=== PATIENT | female | born 1945 | race Caucasian/White ===

== ENCOUNTER → 2017-11-28 | Outpatient (CLI) | payer MEDICARE ==
[~2017-11-28] MED LIST: ALBIPROI INH; ALBU3IS INH; AMLO5 PO; ATEN50 PO; ATOR20 PO; CEPH500 PO; CETI5 PO; CITA20 PO; LEVFLO500 PO; LISHYD2025 PO; LISI20 PO; LISI5 PO; MONT10T PO; Norco 5-325 Ta1 EACH PO; PRED10 PO; TIOT18 INH
[2017-11-28 17:49] LABS: BASOPHILS ABSOLUTE AUTO 0.03 K/mm3 (0.00-0.23); BASOPHILS PERCENT AUTO 0 % (0-2); EOSINOPHILS ABSOLUTE AUTO 0.27 K/mm3 (0.00-0.68); EOSINOPHILS PERCENT AUTO 3 % (0-6); Hematocrit 32.6 % (33.0-51.0); Hemoglobin 9.5 g/dL (11.5-16.0); IMMATURE GRAN ABSOLUTE AUTO 0.04 K/mm3 (0.00-0.10); IMMATURE GRAN PERCENT AUTO 1 % (0-1); LYMPHOCYTES ABSOLUTE AUTO 1.47 K/mm3 (0.84-5.20); LYMPHOCYTES PERCENT AUTO 18 % (21-46); MONOCYTES ABSOLUTE AUTO 0.68 K/mm3 (0.16-1.47); MONOCYTES PERCENT AUTO 8 % (4-13); Mean Corpuscular HGB 23.1 pg (26.0-34.0); Mean Corpuscular HGB Conc 29.1 g/dL (31.5-36.5); Mean Corpuscular Volume 79 fL (80-100); Mean Platelet Volume 8.8 fL (9.1-12.4); NEUTROPHILS ABSOLUTE AUTO 5.78 K/mm3 (1.96-9.15); NEUTROPHILS PERCENT AUTO 70 % (41-73); Platelet Count 564 K/mm3 (150-400); RDW Coefficient Variation 17.8 % (11.7-14.2); RDW Standard Deviation 51.6 fL (35.1-46.3); Red Blood Cell Count 4.12 M/mm3 (3.80-5.20); White Blood Cell Count 8.27 K/mm3 (4.00-11.30)
[2017-11-28 18:07] LABS: Alanine Aminotransfer (ALT/SGP 27 U/L (12-78); Albumin, Blood 3.1 g/dL (3.4-5.0); Albumin/Globulin Ratio 0.8 (0.8-1.8); Alk Phos 98 U/L (50-136); Anion Gap 7 mmol/L (6-16); Aspartate Aminotrans (AST/SGOT 16 U/L (12-37); Bilirubin, Total 0.7 mg/dL (0.1-1.0); Blood Urea Nitrogen 6 mg/dL (8-24); Bun/Creatinine Ratio 11.6 (12.0-20.0); CO2, Blood 34 mmol/L (21-32); Calcium, Blood 8.8 mg/dL (8.5-10.1); Chloride, Blood 100 mmol/L (98-108); Creatinine, Blood 0.52 mg/dL (0.40-1.00); Globulin, Blood 3.8 g/dL (2.2-4.0); Glomerular Filtration Rate >60 (60-); Glucose, Blood 85 mg/dL (70-99); Potassium, Blood 3.3 mmol/L (3.5-5.5); Sodium, Blood 141 mmol/L (136-145); Total Protein, Blood 6.9 g/dL (6.4-8.2)
== END ==
LOC: LAB SHORT 16:11 → LAB 16:11
PROVIDERS: Hospitalist
DX: Z11.59 Encounter for screening for other viral diseases (principal); R55 Syncope and collapse
CPT/HCPCS: 80053; 85025; 86803

== ENCOUNTER 2018-01-02 21:15 | Inpatient (IN) | payer MEDICARE ==
[~2018-01-02] VITALS: Ht 154.9 cm; Wt 54.0 kg
[~2018-01-02 21:15] MED LIST changes: +AMLO10 PO; -AMLO5 PO
[2018-01-02 21:46] LABS: BASOPHILS ABSOLUTE AUTO 0.04 K/mm3 (0.00-0.23); BASOPHILS PERCENT AUTO 0 % (0-2); EOSINOPHILS ABSOLUTE AUTO 0.04 K/mm3 (0.00-0.68); EOSINOPHILS PERCENT AUTO 0 % (0-6); Hematocrit 31.2 % (33.0-51.0); Hemoglobin 8.9 g/dL (11.5-16.0); IMMATURE GRAN ABSOLUTE AUTO 0.11 K/mm3 (0.00-0.10); IMMATURE GRAN PERCENT AUTO 0 % (0-1); LYMPHOCYTES ABSOLUTE AUTO 1.46 K/mm3 (0.84-5.20); LYMPHOCYTES PERCENT AUTO 6 % (21-46); MONOCYTES ABSOLUTE AUTO 1.51 K/mm3 (0.16-1.47); MONOCYTES PERCENT AUTO 6 % (4-13); Mean Corpuscular HGB 21.9 pg (26.0-34.0); Mean Corpuscular HGB Conc 28.5 g/dL (31.5-36.5); Mean Corpuscular Volume 77 fL (80-100); Mean Platelet Volume 8.4 fL (9.1-12.4); NEUTROPHILS ABSOLUTE AUTO 22.18 K/mm3 (1.96-9.15); NEUTROPHILS PERCENT AUTO 87 % (41-73); Platelet Count 497 K/mm3 (150-400); RDW Coefficient Variation 19.4 % (11.7-14.2); RDW Standard Deviation 53.5 fL (35.1-46.3); Red Blood Cell Count 4.07 M/mm3 (3.80-5.20); White Blood Cell Count 25.34 K/mm3 (4.00-11.30)
[2018-01-02 21:59] LABS: Alanine Aminotransfer (ALT/SGP 25 U/L (12-78); Albumin/Globulin Ratio 0.8 (0.8-1.8); Alk Phos 93 U/L (50-136); Anion Gap 5 mmol/L (6-16); Aspartate Aminotrans (AST/SGOT 18 U/L (12-37); Bilirubin, Total 0.3 mg/dL (0.1-1.0); Blood Urea Nitrogen 6 mg/dL (8-24); Bun/Creatinine Ratio 12.5 (12.0-20.0); CO2, Blood 34 mmol/L (21-32); Calcium, Blood 8.5 mg/dL (8.5-10.1); Chloride, Blood 103 mmol/L (98-108); Creatinine, Blood 0.48 mg/dL (0.40-1.00); Globulin, Blood 3.8 g/dL (2.2-4.0); Glomerular Filtration Rate >60 (60-); Glucose, Blood 113 mg/dL (70-99); Potassium, Blood 3.5 mmol/L (3.5-5.5); Sodium, Blood 142 mmol/L (136-145); Total Protein, Blood 6.8 g/dL (6.4-8.2)
[2018-01-03] MEDS ORDERED: LORA.5 PO (00:05)
[2018-01-03] MEDS ORDERED: VENL150ER PO (00:06)
[2018-01-03] MEDS ORDERED: Micro-K10 MEQ PO (00:07)
[2018-01-03] MEDS ORDERED: PRED20 PO (00:08)
[2018-01-03] MEDS ORDERED: TIZANIDINE HCL2 MG PO (01:43)
[2018-01-03] MEDS ORDERED: IBUP400 PO (02:03)
[2018-01-03] MEDS ORDERED: LORA1 PO (02:03)
[2018-01-03] MEDS ORDERED: CETI5 PO (02:05)
[2018-01-03] MEDS ORDERED: ALBU90OI61 INH (02:06)
[2018-01-03] MEDS ORDERED: COMBIVENT RESPIM4 GM INH (02:06)
[2018-01-03] MEDS ORDERED: TIOT18 INH (02:07)
[2018-01-03 04:32] LABS: BASOPHILS ABSOLUTE AUTO 0.02 K/mm3 (0.00-0.23); BASOPHILS PERCENT AUTO 0 % (0-2); EOSINOPHILS PERCENT AUTO 0 % (0-6); Hematocrit 30.4 % (33.0-51.0); Hemoglobin 8.7 g/dL (11.5-16.0); IMMATURE GRAN ABSOLUTE AUTO 0.25 K/mm3 (0.00-0.10); IMMATURE GRAN PERCENT AUTO 1 % (0-1); LYMPHOCYTES ABSOLUTE AUTO 0.38 K/mm3 (0.84-5.20); LYMPHOCYTES PERCENT AUTO 2 % (21-46); MONOCYTES ABSOLUTE AUTO 0.16 K/mm3 (0.16-1.47); MONOCYTES PERCENT AUTO 1 % (4-13); Mean Corpuscular HGB 21.9 pg (26.0-34.0); Mean Corpuscular HGB Conc 28.6 g/dL (31.5-36.5); Mean Corpuscular Volume 76 fL (80-100); Mean Platelet Volume 8.5 fL (9.1-12.4); NEUTROPHILS ABSOLUTE AUTO 23.74 K/mm3 (1.96-9.15); NEUTROPHILS PERCENT AUTO 97 % (41-73); Platelet Count 462 K/mm3 (150-400); RDW Coefficient Variation 19.2 % (11.7-14.2); RDW Standard Deviation 53.3 fL (35.1-46.3); Red Blood Cell Count 3.98 M/mm3 (3.80-5.20); White Blood Cell Count 24.55 K/mm3 (4.00-11.30)
[2018-01-03 04:50] LABS: Anion Gap 6 mmol/L (6-16); Blood Urea Nitrogen 7 mg/dL (8-24); Bun/Creatinine Ratio 14.7 (12.0-20.0); CO2, Blood 33 mmol/L (21-32); Calcium, Blood 8.6 mg/dL (8.5-10.1); Chloride, Blood 101 mmol/L (98-108); Creatinine, Blood 0.48 mg/dL (0.40-1.00); Glomerular Filtration Rate >60 (60-); Glucose, Blood 127 mg/dL (70-99); Potassium, Blood 3.4 mmol/L (3.5-5.5); Sodium, Blood 140 mmol/L (136-145)
[2018-01-04 09:26] LABS: PCO2 Arterial 58.9 mmHg (35-45); PO2 Arterial 76.5 mmHg (80-100); pH Blood Arterial 7.39 (7.35-7.45)
[2018-01-04 09:47] LABS: BASOPHILS ABSOLUTE AUTO 0.02 K/mm3 (0.00-0.23); BASOPHILS PERCENT AUTO 0 % (0-2); EOSINOPHILS PERCENT AUTO 0 % (0-6); Hematocrit 31.2 % (33.0-51.0); Hemoglobin 8.9 g/dL (11.5-16.0); IMMATURE GRAN ABSOLUTE AUTO 0.32 K/mm3 (0.00-0.10); IMMATURE GRAN PERCENT AUTO 1 % (0-1); LYMPHOCYTES ABSOLUTE AUTO 0.52 K/mm3 (0.84-5.20); LYMPHOCYTES PERCENT AUTO 2 % (21-46); MONOCYTES ABSOLUTE AUTO 0.58 K/mm3 (0.16-1.47); MONOCYTES PERCENT AUTO 2 % (4-13); Mean Corpuscular HGB 22.1 pg (26.0-34.0); Mean Corpuscular HGB Conc 28.5 g/dL (31.5-36.5); Mean Corpuscular Volume 77 fL (80-100); Mean Platelet Volume 8.9 fL (9.1-12.4); NEUTROPHILS ABSOLUTE AUTO 24.38 K/mm3 (1.96-9.15); NEUTROPHILS PERCENT AUTO 95 % (41-73); Platelet Count 510 K/mm3 (150-400); RDW Coefficient Variation 19.6 % (11.7-14.2); RDW Standard Deviation 55.2 fL (35.1-46.3); Red Blood Cell Count 4.03 M/mm3 (3.80-5.20); White Blood Cell Count 25.82 K/mm3 (4.00-11.30)
[2018-01-04 10:03] LABS: Anion Gap 6 mmol/L (6-16); Blood Urea Nitrogen 16 mg/dL (8-24); Bun/Creatinine Ratio 26.6 (12.0-20.0); CO2, Blood 36 mmol/L (21-32); Calcium, Blood 9.2 mg/dL (8.5-10.1); Chloride, Blood 97 mmol/L (98-108); Glomerular Filtration Rate >60 (60-); Glucose, Blood 159 mg/dL (70-99); Potassium, Blood 3.7 mmol/L (3.5-5.5); Sodium, Blood 139 mmol/L (136-145)
[2018-01-04 14:00] LABS: Adenovirus Not Detected (NOT DETECT); Coronavirus 229E Not Detected (NOT DETECT); Coronavirus HKU1 Not Detected (NOT DETECT)
[2018-01-04 14:01] LABS: Bordetella pertussis Not Detected (NOT DETECT); Chlamydophila pneumoniae Not Detected (NOT DETECT); Coronavirus NL63 Not Detected (NOT DETECT); Coronavirus OC43 Not Detected (NOT DETECT); Human Metapneumovirus Not Detected (NOT DETECT); Human Rhinovirus/Enterovirus Not Detected (NOT DETECT); Influenza A/2009-H1 Not Detected (NOT DETECT); Influenza A/H1 Not Detected (NOT DETECT); Influenza A/H3 Not Detected (NOT DETECT); Influenza B Not Detected (NOT DETECT); Mycoplasma pneumoniae Not Detected (NOT DETECT); Parainfluenza Virus 1 Not Detected (NOT DETECT); Parainfluenza Virus 2 Not Detected (NOT DETECT); Parainfluenza Virus 3 Not Detected (NOT DETECT); Parainfluenza Virus 4 Not Detected (NOT DETECT); Respiratory Syncytial Virus Not Detected (NOT DETECT)
[2018-01-04 15:13] LABS: Influenza A Not Detected (NOT DETECT)
[2018-01-05 05:10] LABS: BASOPHILS ABSOLUTE AUTO 0.04 K/mm3 (0.00-0.23); BASOPHILS PERCENT AUTO 0 % (0-2); EOSINOPHILS PERCENT AUTO 0 % (0-6); Hematocrit 30.2 % (33.0-51.0); Hemoglobin 8.7 g/dL (11.5-16.0); IMMATURE GRAN ABSOLUTE AUTO 0.55 K/mm3 (0.00-0.10); IMMATURE GRAN PERCENT AUTO 2 % (0-1); LYMPHOCYTES ABSOLUTE AUTO 0.59 K/mm3 (0.84-5.20); LYMPHOCYTES PERCENT AUTO 3 % (21-46); MONOCYTES ABSOLUTE AUTO 0.51 K/mm3 (0.16-1.47); MONOCYTES PERCENT AUTO 2 % (4-13); Mean Corpuscular HGB 21.9 pg (26.0-34.0); Mean Corpuscular HGB Conc 28.8 g/dL (31.5-36.5); Mean Corpuscular Volume 76 fL (80-100); Mean Platelet Volume 8.9 fL (9.1-12.4); NEUTROPHILS ABSOLUTE AUTO 22.22 K/mm3 (1.96-9.15); NEUTROPHILS PERCENT AUTO 93 % (41-73); NRBC ABSOLUTE 0.05 K/mm3 (0.00-0.02); NRBC Auto 0.2 /100 WBC (0.0-0.2); Platelet Count 509 K/mm3 (150-400); RDW Coefficient Variation 19.9 % (11.7-14.2); RDW Standard Deviation 54.3 fL (35.1-46.3); Red Blood Cell Count 3.97 M/mm3 (3.80-5.20); White Blood Cell Count 23.91 K/mm3 (4.00-11.30)
[2018-01-05 05:33] LABS: Anion Gap 5 mmol/L (6-16); Blood Urea Nitrogen 19 mg/dL (8-24); Bun/Creatinine Ratio 34.4 (12.0-20.0); CO2, Blood 33 mmol/L (21-32); Calcium, Blood 8.8 mg/dL (8.5-10.1); Chloride, Blood 101 mmol/L (98-108); Creatinine, Blood 0.55 mg/dL (0.40-1.00); Glomerular Filtration Rate >60 (60-); Glucose, Blood 116 mg/dL (70-99); Potassium, Blood 4.1 mmol/L (3.5-5.5); Sodium, Blood 139 mmol/L (136-145)
[2018-01-06] MEDS ORDERED: FERSU220EL PO (10:35)
[2018-01-06] MEDS ORDERED: GUAI600T33 PO (10:36)
[2018-01-06] MEDS ORDERED: FURO40 PO (10:36)
[2018-01-06] MEDS ORDERED: PANT40 PO ×2 (15:02→15:32)
== END 2018-01-06 19:30 | disposition home or self-care (01) | DRG 871 ==
LOC: ER 21:15 → MEDS 23:28
PROVIDERS: Emergency Medicine; Hospitalist; Internal Medicine; Internal Medicine Gastroenterology
PROC: 0W3P8ZZ Control Bleeding in Gastrointestinal Tract, Via Natural or Artificial Opening Endoscopic (ICD-10-PCS; 2018-01-06)
PROC: 0DB98ZX Excision of Duodenum, Via Natural or Artificial Opening Endoscopic, Diagnostic (ICD-10-PCS; principal; 2018-01-06 10:00)
PROC: 0DB78ZX Excision of Stomach, Pylorus, Via Natural or Artificial Opening Endoscopic, Diagnostic (ICD-10-PCS; 2018-01-06 10:00)
PROC: 0DB68ZX Excision of Stomach, Via Natural or Artificial Opening Endoscopic, Diagnostic (ICD-10-PCS; 2018-01-06 10:00)
PROC: 0DBK8ZX Excision of Ascending Colon, Via Natural or Artificial Opening Endoscopic, Diagnostic (ICD-10-PCS; 2018-01-06 10:00)
PROC: 0DBP8ZX Excision of Rectum, Via Natural or Artificial Opening Endoscopic, Diagnostic (ICD-10-PCS; 2018-01-06 10:00)
DX: A41.9 Sepsis, unspecified organism (principal); J96.21 Acute and chronic respiratory failure with hypoxia; J96.22 Acute and chronic respiratory failure with hypercapnia; J44.1 Chronic obstructive pulmonary disease with (acute) exacerbation; D50.9 Iron deficiency anemia, unspecified; I10 Essential (primary) hypertension; E78.5 Hyperlipidemia, unspecified; F17.200 Nicotine dependence, unspecified, uncomplicated; I99.8 Other disorder of circulatory system; M19.90 Unspecified osteoarthritis, unspecified site; K25.9 Gastric ulcer, unspecified as acute or chronic, without hemorrhage or perforation; K57.30 Diverticulosis of large intestine without perforation or abscess without bleeding; K64.8 Other hemorrhoids; K20.8 Other esophagitis; K63.5 Polyp of colon; K62.1 Rectal polyp; Z88.1 Allergy status to other antibiotic agents; Z88.3 Allergy status to other anti-infective agents; Z88.5 Allergy status to narcotic agent; Z88.0 Allergy status to penicillin; Z99.81 Dependence on supplemental oxygen; Z79.899 Other long term (current) drug therapy
CPT/HCPCS: 36415; 36600; 71046; 80048; 80053; 82803; 83605; 83880; 85025; 87040; 87486; 87581; 87633; 87798; 88305; 88342; 93005; 93010; 94010; 94640; 94664; 94667; 94760; 96365; 96375; 98960; 99285; 99407; J1100; J1940; J1956; J2250; J2405; J2916; J2920; J2930; J7030; J7120

== ENCOUNTER 2018-01-07 16:11 | Observation (INO) | payer MEDICARE ==
[~2018-01-07] VITALS: Ht 154.9 cm; Wt 52.7 kg
[~2018-01-07 16:11] MED LIST changes: +ALBU90OI61 INH; +COMBIVENT RESPIM4 GM INH; +FERSU220EL PO; +FURO40 PO; +GUAI600T33 PO; +IBUP400 PO; +LORA.5 PO; +LORA1 PO; +Micro-K10 MEQ PO; +PANT40 PO; +PRED20 PO; +TIZANIDINE HCL2 MG PO; +VENL150ER PO
[2018-01-07 16:54] LABS: BASOPHILS ABSOLUTE AUTO 0.04 K/mm3 (0.00-0.23); BASOPHILS PERCENT AUTO 0 % (0-2); EOSINOPHILS PERCENT AUTO 1 % (0-6); Hematocrit 32.6 % (33.0-51.0); Hemoglobin 9.2 g/dL (11.5-16.0); IMMATURE GRAN ABSOLUTE AUTO 0.54 K/mm3 (0.00-0.10); IMMATURE GRAN PERCENT AUTO 3 % (0-1); LYMPHOCYTES ABSOLUTE AUTO 2.87 K/mm3 (0.84-5.20); LYMPHOCYTES PERCENT AUTO 17 % (21-46); MONOCYTES ABSOLUTE AUTO 1.46 K/mm3 (0.16-1.47); MONOCYTES PERCENT AUTO 9 % (4-13); Mean Corpuscular HGB 22.5 pg (26.0-34.0); Mean Corpuscular HGB Conc 28.2 g/dL (31.5-36.5); Mean Platelet Volume 8.6 fL (9.1-12.4); NEUTROPHILS ABSOLUTE AUTO 12.09 K/mm3 (1.96-9.15); NEUTROPHILS PERCENT AUTO 71 % (41-73); NRBC ABSOLUTE 0.08 K/mm3 (0.00-0.02); NRBC Auto 0.5 /100 WBC (0.0-0.2); Platelet Count 488 K/mm3 (150-400); RDW Coefficient Variation 20.7 % (11.7-14.2); RDW Standard Deviation 56.3 fL (35.1-46.3); Red Blood Cell Count 4.09 M/mm3 (3.80-5.20)
[2018-01-07 16:55] LABS: Calcium, Ionized (POC) 1.04 mmol/L (1.10-1.46); Chloride (POC) 95 mmol/L (98-108); Creatinine (POC) 0.9 mg/dL (0.6-1.0); Glucose (ISTAT POC) 87 mg/dL (70-99); Hemoglobin (POC) 10.5 g/dL (12.0-16.0); Potassium (POC) 3.4 mmol/L (3.5-5.5); Sodium (POC) 139 mmol/L (135-148); Total CO2 (POC) 35 mmol/L (21-32)
[2018-01-07 17:07] LABS: Mean Corpuscular Volume 80 fL (80-100)
[2018-01-07 17:20] LABS: Alanine Aminotransfer (ALT/SGP 23 U/L (12-78); Albumin, Blood 3.2 g/dL (3.4-5.0); Alk Phos 75 U/L (50-136); Anion Gap 4 mmol/L (6-16); Aspartate Aminotrans (AST/SGOT 14 U/L (12-37); Bilirubin, Total 0.2 mg/dL (0.1-1.0); Blood Urea Nitrogen 19 mg/dL (8-24); Bun/Creatinine Ratio 28.4 (12.0-20.0); CO2, Blood 38 mmol/L (21-32); Calcium, Blood 8.1 mg/dL (8.5-10.1); Chloride, Blood 100 mmol/L (98-108); Creatinine, Blood 0.67 mg/dL (0.40-1.00); Globulin, Blood 3.2 g/dL (2.2-4.0); Glomerular Filtration Rate >60 (60-); Glucose, Blood 88 mg/dL (70-99); Potassium, Blood 3.4 mmol/L (3.5-5.5); Sodium, Blood 142 mmol/L (136-145); Total Protein, Blood 6.4 g/dL (6.4-8.2)
[2018-01-08 04:51] LABS: BASOPHILS ABSOLUTE AUTO 0.02 K/mm3 (0.00-0.23); BASOPHILS PERCENT AUTO 0 % (0-2); EOSINOPHILS PERCENT AUTO 0 % (0-6); Hematocrit 28.4 % (33.0-51.0); Hemoglobin 8.1 g/dL (11.5-16.0); IMMATURE GRAN ABSOLUTE AUTO 0.54 K/mm3 (0.00-0.10); IMMATURE GRAN PERCENT AUTO 4 % (0-1); LYMPHOCYTES ABSOLUTE AUTO 0.79 K/mm3 (0.84-5.20); LYMPHOCYTES PERCENT AUTO 6 % (21-46); MONOCYTES ABSOLUTE AUTO 0.14 K/mm3 (0.16-1.47); MONOCYTES PERCENT AUTO 1 % (4-13); Mean Corpuscular HGB 22.2 pg (26.0-34.0); Mean Corpuscular HGB Conc 28.5 g/dL (31.5-36.5); Mean Corpuscular Volume 78 fL (80-100); Mean Platelet Volume 9.2 fL (9.1-12.4); NEUTROPHILS ABSOLUTE AUTO 11.13 K/mm3 (1.96-9.15); NEUTROPHILS PERCENT AUTO 88 % (41-73); NRBC ABSOLUTE 0.05 K/mm3 (0.00-0.02); NRBC Auto 0.4 /100 WBC (0.0-0.2); Platelet Count 441 K/mm3 (150-400); RDW Coefficient Variation 20.6 % (11.7-14.2); RDW Standard Deviation 55.3 fL (35.1-46.3); Red Blood Cell Count 3.65 M/mm3 (3.80-5.20); White Blood Cell Count 12.62 K/mm3 (4.00-11.30)
== END 2018-01-08 16:52 | disposition home or self-care (01) ==
LOC: ER 16:11 → MEDS 16:12
PROVIDERS: Emergency Medicine; Hospitalist
DX: K92.2 Gastrointestinal hemorrhage, unspecified (principal); J44.1 Chronic obstructive pulmonary disease with (acute) exacerbation; I10 Essential (primary) hypertension; D72.829 Elevated white blood cell count, unspecified; J45.909 Unspecified asthma, uncomplicated; F17.210 Nicotine dependence, cigarettes, uncomplicated; E78.5 Hyperlipidemia, unspecified; M19.90 Unspecified osteoarthritis, unspecified site; F41.9 Anxiety disorder, unspecified; D47.3 Essential (hemorrhagic) thrombocythemia; D50.9 Iron deficiency anemia, unspecified; Z99.81 Dependence on supplemental oxygen; Z88.0 Allergy status to penicillin; Z88.1 Allergy status to other antibiotic agents; Z88.8 Allergy status to other drugs, medicaments and biological substances; Z79.899 Other long term (current) drug therapy
CPT/HCPCS: 36415; 80047; 80053; 85014; 85025; 86850; 86900; 86901; 93005; 93010; 94640; 94760; 99285; G0378

== ENCOUNTER 2018-08-31 20:11 | Inpatient (IN) | payer MEDICARE ==
[~2018-08-31] VITALS: Ht 167.6 cm; Wt 74.8 kg
[~2018-08-31 20:11] MED LIST changes: +Advair Hfa 230-12 GM INH; -FERSU220EL PO; +Feosol45 MG
[2018-08-31 20:42] LABS: BASOPHILS ABSOLUTE AUTO 0.03 K/mm3 (0.00-0.23); BASOPHILS PERCENT AUTO 0 % (0-2); EOSINOPHILS ABSOLUTE AUTO 0.02 K/mm3 (0.00-0.68); EOSINOPHILS PERCENT AUTO 0 % (0-6); Hematocrit 44.3 % (33.0-51.0); Hemoglobin 13.7 g/dL (11.5-16.0); IMMATURE GRAN ABSOLUTE AUTO 0.09 K/mm3 (0.00-0.10); IMMATURE GRAN PERCENT AUTO 1 % (0-1); LYMPHOCYTES ABSOLUTE AUTO 1.32 K/mm3 (0.84-5.20); LYMPHOCYTES PERCENT AUTO 12 % (21-46); MONOCYTES ABSOLUTE AUTO 0.62 K/mm3 (0.16-1.47); MONOCYTES PERCENT AUTO 6 % (4-13); Mean Corpuscular HGB 30.9 pg (26.0-34.0); Mean Corpuscular HGB Conc 30.9 g/dL (31.5-36.5); Mean Corpuscular Volume 100 fL (80-100); Mean Platelet Volume 8.6 fL (9.1-12.4); NEUTROPHILS ABSOLUTE AUTO 8.82 K/mm3 (1.96-9.15); NEUTROPHILS PERCENT AUTO 81 % (41-73); Platelet Count 419 K/mm3 (150-400); RDW Coefficient Variation 12.9 % (11.7-14.2); Red Blood Cell Count 4.43 M/mm3 (3.80-5.20)
[2018-08-31 21:09] LABS: Troponin I <0.015 ng/mL (0.000-0.040)
[2018-08-31 21:11] LABS: Alanine Aminotransfer (ALT/SGP 26 U/L (12-78); Albumin, Blood 3.8 g/dL (3.4-5.0); Alk Phos 66 U/L (50-136); Anion Gap 7 mmol/L (6-16); Aspartate Aminotrans (AST/SGOT 16 U/L (12-37); Bilirubin, Total <0.1 mg/dL (0.1-1.0); Blood Urea Nitrogen 19 mg/dL (8-24); Bun/Creatinine Ratio 20.1 (12.0-20.0); CO2, Blood 31 mmol/L (21-32); Calcium, Blood 9.4 mg/dL (8.5-10.1); Chloride, Blood 102 mmol/L (98-108); Creatinine, Blood 0.94 mg/dL (0.40-1.00); Glomerular Filtration Rate >60 (60-); Glucose, Blood 107 mg/dL (70-99); Potassium, Blood 4.3 mmol/L (3.5-5.5); Sodium, Blood 140 mmol/L (136-145); Total Protein, Blood 7.8 g/dL (6.4-8.2)
[2018-08-31 22:58] LABS: International Normalized Ratio 0.91; Prothrombin Time Results 9.4 Sec (9.7-11.5)
[2018-08-31] MEDS ORDERED: PRED10 PO (23:44)
[2018-09-01 04:08] LABS: Adenovirus Not Detected (NOT DETECT); Bordetella pertussis Not Detected (NOT DETECT); Chlamydophila pneumoniae Not Detected (NOT DETECT); Coronavirus 229E Not Detected (NOT DETECT); Coronavirus HKU1 Not Detected (NOT DETECT); Coronavirus NL63 Not Detected (NOT DETECT); Coronavirus OC43 Not Detected (NOT DETECT); Human Metapneumovirus Not Detected (NOT DETECT); Human Rhinovirus/Enterovirus Not Detected (NOT DETECT); Influenza A/2009-H1 Not Detected (NOT DETECT); Influenza A/H1 Not Detected (NOT DETECT); Influenza A/H3 Not Detected (NOT DETECT); Influenza B Not Detected (NOT DETECT); Mycoplasma pneumoniae Not Detected (NOT DETECT); Parainfluenza Virus 1 Not Detected (NOT DETECT); Parainfluenza Virus 2 Not Detected (NOT DETECT); Parainfluenza Virus 3 Not Detected (NOT DETECT); Parainfluenza Virus 4 Not Detected (NOT DETECT); Respiratory Syncytial Virus Not Detected (NOT DETECT)
[2018-09-01 05:25] LABS: Influenza A Not Detected (NOT DETECT)
[2018-09-01 05:48] LABS: Hemoglobin 12.3 g/dL (11.5-16.0); Mean Corpuscular HGB 30.7 pg (26.0-34.0); Mean Corpuscular HGB Conc 30.8 g/dL (31.5-36.5); Mean Corpuscular Volume 100 fL (80-100); Mean Platelet Volume 8.9 fL (9.1-12.4); Platelet Count 388 K/mm3 (150-400); RDW Coefficient Variation 12.9 % (11.7-14.2); RDW Standard Deviation 47.8 fL (35.1-46.3); Red Blood Cell Count 4.01 M/mm3 (3.80-5.20); White Blood Cell Count 10.66 K/mm3 (4.00-11.30)
[2018-09-01 06:16] LABS: Anion Gap 8 mmol/L (6-16); Blood Urea Nitrogen 21 mg/dL (8-24); Bun/Creatinine Ratio 27.8 (12.0-20.0); CO2, Blood 28 mmol/L (21-32); Calcium, Blood 8.7 mg/dL (8.5-10.1); Chloride, Blood 104 mmol/L (98-108); Creatinine, Blood 0.76 mg/dL (0.40-1.00); Glomerular Filtration Rate >60 (60-); Glucose, Blood 156 mg/dL (70-99); Potassium, Blood 4.3 mmol/L (3.5-5.5); Sodium, Blood 140 mmol/L (136-145)
--- NOTE | 2018-09-01 07:46 | NUR ---
SHIFT SUMMARY PT A&OX4; PAIN IN L SHOULDER. MANGED PER EMAR. PT ADMITTED FROM ER THIS SHIFT. INDEPENDENT IN ROOM. OFF UNIT X1 EVENT. NPO POST MIDNIGHT. NAUSEA MANAGED PER EMAR. RA; DENIES SOB AND CP. CALL LIGHT IN REACH; PT DEMONSTRATES USE. NOTIFIED DR. LEMUS THIS AM PT REPORTS ASPIRIN USE FOR PAIN MANGEMENT FOR THE LAST FEW MONTHS. REPORT GIVEN TO DAY SHIFT RN.
--- NOTE | 2018-09-01 07:54 | NUR ---
SHIFT SUMMARY PT A&O X4 T/O SHIFT. PT ADMITTED FROM ER APPROX. 0200 09/01/18. O2 VIA NC 2.5L VIA NC. PT ABLE TO CONVERSE WITHOUT INCREASED WOB. INCREASED O2 NEEDS WITH ACTIVITY. BSC WITH SBA. CALL LIGHT IN REACH; PT DEMONSTRATES USE. PT DENIED PAIN, CP AND NAUSEA T/O SHIFT. REPORT GIVEN TO DAY SHIFT RN.
--- NOTE | 2018-09-01 18:45 | NUR ---
SHIFT SUMMARY PT AXO X4, PLEASANT AND COOPERATIVE WITH CARE. PT BECAME SOB AND WAS COUGHING AT 1730, REQUESTED BREATHING TREATMENT, SEE MAR. PT COMFORTABLE AT THIS TIME THOUGH WAS CLEARLY ANXIOUS WHEN SOB. PT COMPLAINED OF MALHOTRA THAT HAS BEEN PERSISTING FOR OVER A YEAR. PT MEDICATED FOR PAIN PER EMAR. PT CONTINES TO HAVE EXERTIONAL DYSPNEA. ON 2.5L AT THIS TIME
--- NOTE | 2018-09-02 09:40 | NUR ---
DR ADAMS RECENTLY HERE. REPORTED TO WEAN O2.
--- NOTE | 2018-09-02 16:15 | NUR ---
SHIFT SUMMARY PT EATING AND DRINKING. PT O2 WEANED DOWN TO 2.5LNC. PT BEEN ASSISTED WITH ADL'S PRN. PT VOIDING USING BSC. PT FAMILY IN TO SEE PT. PT USING CALL LIGHT APPR. PT VOIDING. PT GIVEN PRUNE JUICE THIS AFTERNOON UPON REQ.
--- NOTE | 2018-09-03 01:35 | NUR ---
TYLERERA CALL RECIEVED FROM DURGA BAUER AT APPROX 0030 NOTIFYING ME TO GO INTO PT ROOM. PT ON FLOOR SITTING IN AN UPRIGHT POSITION. REPORTS FALLING WHEN GETTING OUT OF BED TO REACH FOR CHAPSTICK THAT HAD FALLEN ON GROUND. STATES SHE GOT TANGLED IN HER 02 TUBING, FELL TO HER KNEES THEN HIT HER HEAD ON THE FLOOR. PT HAS A SMALL BUMP ON FOREHEAD AND REDNESS ON KNEES. DENIES DIZZINESS. A&O X4. PERRY. REPORTS A MILD H/A. GIVEN TYLENOL PER EMAR. DR MONTALVO NOTIFIED OF FALL AT APPROX 0115. WAS TOLD THAT PT REPORTS FALLING AND HITTING HEAD WHILE GETTING TO [facility] [place] [place]. INFORMED THAT PT IS A&O X4, NEURO CHECK WNL. NO DIZZINESS. SML BUMP ON HEAD. NOTIFIED THAT PT TAKES LOVENOX AT 0900 DAILY; ASKED IF HE WANTS TO ORDER IMAGING. RECOMMENDS TO CONTINUE TO MONITOR. NO NEW ORDERS.
--- NOTE | 2018-09-03 07:05 | NUR ---
REPORT FROM SHEAR SETTER. ASSUMED PT CARE.
--- NOTE | 2018-09-03 09:03 | NUR ---
PT MEDICATED PER EMAR. COFFEE PROVIDED PER REQUEST. PT DENIES PAIN.
--- NOTE | 2018-09-03 11:40 | NUR ---
PT RESTING IN POSITION OF COMFORT. APPEARS TO BE SLEEPING.
--- NOTE | 2018-09-03 12:08 | NUR ---
PT REQUESTING SOMETHING FOR PAIN.
--- NOTE | 2018-09-03 12:12 | NUR ---
Alyssia was alert, warm and conversant. No physical pain or stress reported or detected. I explored Alyssia's roman catholic beliefs, created an opportunity for positive life review and offered attentive listening, inspirational direction and words of encouragement and affirmation. Alyssia adheres to a Scientologist perspective with conventional modes of practice and understanding. She has lived a rich, interesting and benevolent life. I provided audible prayer for comfort, restored health and favor. She expressed appreciation and reciprocated with a verbal blessing.
--- NOTE | 2018-09-03 12:25 | NUR ---
report to fer harkins for lunch.
--- NOTE | 2018-09-03 13:10 | NUR ---
resumed pt care.
--- NOTE | 2018-09-03 17:35 | NUR ---
VERBAL ORDERS FROM DR OLIVAS FOR PT TO GET AN OVERNIGHT SLEEP STUDY FOLLOWED BY ABG IN AM.
[2018-09-04 04:38] LABS: PCO2 Arterial 68.6 mmHg (35-45); PO2 Arterial 100 mmHg (80-100); pH Blood Arterial 7.35 (7.35-7.45)
--- NOTE | 2018-09-04 05:14 | NUR ---
PT HAD NO ACUTE CHANGES T/O NIGHT. SLEEP STUDY COMPLETED, SATS >90% ON 3L NC WHILE SLEEPING. SATS NOTED TO DROP TO 82% W/ACTIVITY. PT U POOB W/SBA, DOES HAVE SOB W/EXERTION. PT USING CALL LIGHT FOR ASSISTANCE, WILL CONT TO MONITOR UNTIL REP GIVEN TO ONCOMING RN.
[2018-09-04] MEDS ORDERED: BENZ100A PO (12:02)
[2018-09-04] MEDS ORDERED: LEVFLO500 PO (12:04)
[2018-09-04] MEDS ORDERED: DELTASONE20 MG PO (12:05)
[2018-09-04] MEDS ORDERED: SACC250C PO (12:06)
[2018-09-04] MEDS ORDERED: Bactrim Ds Tab1 EACH PO (12:06)
--- NOTE | 2018-09-04 18:34 | NUR ---
DISCHARGED PT DC'D. REVIEWED DC PAPERWORK; PT VERBALIZED UNDERSTANDING. DC'D IV, CATHETER INTACT. PT LEFT UNIT IN WC ACCOMPANIED BY FAMILY W/POSSESSIONS AND DC INSTRUCTIONS IN HAND.
[2018-10-22] MEDS ORDERED: Zofran8 MG PO (00:16)
[2018-10-22] MEDS ORDERED: HYDR1TAB94 PO (00:16)
== END 2018-09-04 18:25 | disposition home or self-care (01) | DRG 871 ==
LOC: ER 20:11 → SURS 23:20
PROVIDERS: Emergency Medicine; Hospitalist; Nurse Practitioner Acute Care; ADMIT Internal Medicine
DX: A41.9 Sepsis, unspecified organism (principal); J18.9 Pneumonia, unspecified organism; J96.22 Acute and chronic respiratory failure with hypercapnia; J96.21 Acute and chronic respiratory failure with hypoxia; J44.1 Chronic obstructive pulmonary disease with (acute) exacerbation; J44.0 Chronic obstructive pulmonary disease with (acute) lower respiratory infection; R65.20 Severe sepsis without septic shock; I10 Essential (primary) hypertension; F41.9 Anxiety disorder, unspecified; F32.9 Major depressive disorder, single episode, unspecified; E78.5 Hyperlipidemia, unspecified; Z88.1 Allergy status to other antibiotic agents; Z88.8 Allergy status to other drugs, medicaments and biological substances; Z86.14 Personal history of Methicillin resistant Staphylococcus aureus infection; Z79.51 Long term (current) use of inhaled steroids; Z79.52 Long term (current) use of systemic steroids; Z79.899 Other long term (current) drug therapy; Z99.81 Dependence on supplemental oxygen; Z87.891 Personal history of nicotine dependence
CPT/HCPCS: 36415; 36600; 71046; 80048; 80053; 82803; 83605; 83690; 83880; 84484; 85025; 85027; 85610; 87040; 87449; 87486; 87581; 87633; 87798; 93005; 93010; 94640; 94760; 94762; 96361; 96365; 96367; 96375; 99285-25; J0696; J1650; J1956; J2930; J7030; J7120

== ENCOUNTER 2018-09-07 20:26 | Emergency (ER) | payer MEDICARE ==
[~2018-09-07] VITALS: Ht 157.5 cm; Wt 72.6 kg
[~2018-09-07 20:26] MED LIST changes: +BENZ100A PO; +Bactrim Ds Tab1 EACH PO; +DELTASONE20 MG PO; +SACC250C PO
[2018-09-07 21:58] LABS: BASOPHILS ABSOLUTE AUTO 0.07 K/mm3 (0.00-0.23); BASOPHILS PERCENT AUTO 0 % (0-2); EOSINOPHILS PERCENT AUTO 0 % (0-6); Hematocrit 44.4 % (33.0-51.0); Hemoglobin 13.5 g/dL (11.5-16.0); IMMATURE GRAN ABSOLUTE AUTO 0.35 K/mm3 (0.00-0.10); IMMATURE GRAN PERCENT AUTO 2 % (0-1); LYMPHOCYTES ABSOLUTE AUTO 0.77 K/mm3 (0.84-5.20); LYMPHOCYTES PERCENT AUTO 5 % (21-46); MONOCYTES ABSOLUTE AUTO 0.68 K/mm3 (0.16-1.47); MONOCYTES PERCENT AUTO 4 % (4-13); Mean Corpuscular HGB 30.6 pg (26.0-34.0); Mean Corpuscular HGB Conc 30.4 g/dL (31.5-36.5); Mean Corpuscular Volume 101 fL (80-100); Mean Platelet Volume 8.9 fL (9.1-12.4); NEUTROPHILS ABSOLUTE AUTO 14.99 K/mm3 (1.96-9.15); NEUTROPHILS PERCENT AUTO 89 % (41-73); Platelet Count 409 K/mm3 (150-400); RDW Coefficient Variation 13.2 % (11.7-14.2); RDW Standard Deviation 49.7 fL (35.1-46.3); Red Blood Cell Count 4.41 M/mm3 (3.80-5.20); White Blood Cell Count 16.86 K/mm3 (4.00-11.30)
[2018-09-07 22:18] LABS: Albumin, Blood 3.8 g/dL (3.4-5.0); Bilirubin, Total 0.1 mg/dL (0.1-1.0); Bun/Creatinine Ratio 20.5 (12.0-20.0); Creatinine, Blood 1.17 mg/dL (0.40-1.00); Globulin, Blood 3.8 g/dL (2.2-4.0); Potassium, Blood 5.4 mmol/L (3.5-5.5); Total Protein, Blood 7.6 g/dL (6.4-8.2)
[2018-09-08] MEDS ORDERED: HYOS.125 SL (00:27)
[2018-10-22] MEDS ORDERED: HYDR1TAB94 PO (00:16)
[2018-10-22] MEDS ORDERED: Zofran8 MG PO (00:16)
== END 2018-09-08 01:35 | disposition home or self-care (01) ==
LOC: ER 20:26
PROVIDERS: Physician Assistant
DX: K52.9 Noninfective gastroenteritis and colitis, unspecified (principal); E78.5 Hyperlipidemia, unspecified; I10 Essential (primary) hypertension; J45.909 Unspecified asthma, uncomplicated; M19.90 Unspecified osteoarthritis, unspecified site; Z88.5 Allergy status to narcotic agent; Z88.1 Allergy status to other antibiotic agents; Z88.0 Allergy status to penicillin; Z79.899 Other long term (current) drug therapy; Z87.891 Personal history of nicotine dependence
CPT/HCPCS: 36415; 74176; 80053; 83690; 84484; 85025; 87493; 93005; 93010; 94640; 96374; 96375; 96376; 99284-25; J2405; J3010; J7030

== ENCOUNTER 2018-10-11 08:28 | Emergency (ER) | payer MEDICARE ==
[~2018-10-11] VITALS: Ht 157.5 cm; Wt 71.7 kg
[~2018-10-11 08:28] MED LIST changes: +HYOS.125 SL
[2018-10-11 08:44] LABS: BASOPHILS ABSOLUTE AUTO 0.08 K/mm3 (0.00-0.23); BASOPHILS PERCENT AUTO 1 % (0-2); EOSINOPHILS ABSOLUTE AUTO 0.17 K/mm3 (0.00-0.68); EOSINOPHILS PERCENT AUTO 1 % (0-6); Hematocrit 41.2 % (33.0-51.0); Hemoglobin 12.2 g/dL (11.5-16.0); IMMATURE GRAN ABSOLUTE AUTO 0.23 K/mm3 (0.00-0.10); IMMATURE GRAN PERCENT AUTO 1 % (0-1); LYMPHOCYTES PERCENT AUTO 28 % (21-46); MONOCYTES ABSOLUTE AUTO 1.59 K/mm3 (0.16-1.47); MONOCYTES PERCENT AUTO 9 % (4-13); Mean Corpuscular HGB 30.4 pg (26.0-34.0); Mean Corpuscular HGB Conc 29.6 g/dL (31.5-36.5); Mean Corpuscular Volume 103 fL (80-100); Mean Platelet Volume 8.5 fL (9.1-12.4); NEUTROPHILS ABSOLUTE AUTO 10.43 K/mm3 (1.96-9.15); NEUTROPHILS PERCENT AUTO 60 % (41-73); Platelet Count 418 K/mm3 (150-400); RDW Standard Deviation 53.1 fL (35.1-46.3); Red Blood Cell Count 4.01 M/mm3 (3.80-5.20)
[2018-10-11 09:09] LABS: Anion Gap 7 mmol/L (6-16); Blood Urea Nitrogen 23 mg/dL (8-24); Bun/Creatinine Ratio 31.6 (12.0-20.0); CO2, Blood 33 mmol/L (21-32); Calcium, Blood 8.5 mg/dL (8.5-10.1); Chloride, Blood 103 mmol/L (98-108); Creatinine, Blood 0.73 mg/dL (0.40-1.00); Glomerular Filtration Rate >60 (60-); Glucose, Blood 98 mg/dL (70-99); Potassium, Blood 3.8 mmol/L (3.5-5.5); Sodium, Blood 143 mmol/L (136-145)
[2018-10-22] MEDS ORDERED: Zofran8 MG PO (00:16)
[2018-10-22] MEDS ORDERED: HYDR1TAB94 PO (00:16)
== END 2018-10-11 12:55 | disposition home or self-care (01) ==
LOC: ER 08:28
PROVIDERS: Emergency Medicine
DX: J96.21 Acute and chronic respiratory failure with hypoxia (principal); J44.1 Chronic obstructive pulmonary disease with (acute) exacerbation; Z99.11 Dependence on respirator [ventilator] status; I10 Essential (primary) hypertension; F32.9 Major depressive disorder, single episode, unspecified; Z87.891 Personal history of nicotine dependence
CPT/HCPCS: 71045; 80048; 85025; 93005; 93010; 94660; 96374; 96375; 99285-25; J2405; J2930

== ENCOUNTER 2018-11-07 16:56 | Emergency (ER) | payer MEDICARE ==
[~2018-11-07] VITALS: Ht 157.5 cm; Wt 77.1 kg
[~2018-11-07 16:56] MED LIST changes: +HYDR1TAB94 PO; +Zofran8 MG PO
[2018-11-07] MEDS ORDERED: PRED10 PO (18:21)
[2018-11-07] MEDS ORDERED: ROPI1 PO (18:21)
[2018-11-07 18:26] LABS: BASOPHILS ABSOLUTE AUTO 0.03 K/mm3 (0.00-0.23); BASOPHILS PERCENT AUTO 0 % (0-2); EOSINOPHILS ABSOLUTE AUTO 0.06 K/mm3 (0.00-0.68); EOSINOPHILS PERCENT AUTO 1 % (0-6); Hematocrit 43.4 % (33.0-51.0); Hemoglobin 13.1 g/dL (11.5-16.0); IMMATURE GRAN ABSOLUTE AUTO 0.07 K/mm3 (0.00-0.10); IMMATURE GRAN PERCENT AUTO 1 % (0-1); LYMPHOCYTES ABSOLUTE AUTO 1.63 K/mm3 (0.84-5.20); LYMPHOCYTES PERCENT AUTO 15 % (21-46); MONOCYTES ABSOLUTE AUTO 0.71 K/mm3 (0.16-1.47); MONOCYTES PERCENT AUTO 6 % (4-13); Mean Corpuscular HGB 30.3 pg (26.0-34.0); Mean Corpuscular HGB Conc 30.2 g/dL (31.5-36.5); Mean Corpuscular Volume 101 fL (80-100); Mean Platelet Volume 8.9 fL (9.1-12.4); NEUTROPHILS ABSOLUTE AUTO 8.75 K/mm3 (1.96-9.15); NEUTROPHILS PERCENT AUTO 78 % (41-73); Platelet Count 430 K/mm3 (150-400); RDW Coefficient Variation 13.6 % (11.7-14.2); RDW Standard Deviation 50.4 fL (35.1-46.3); Red Blood Cell Count 4.32 M/mm3 (3.80-5.20); White Blood Cell Count 11.25 K/mm3 (4.00-11.30)
[2018-11-07 18:48] LABS: Alanine Aminotransfer (ALT/SGP 26 U/L (12-78); Albumin, Blood 3.6 g/dL (3.4-5.0); Albumin/Globulin Ratio 0.9 (0.8-1.8); Alk Phos 74 U/L (50-136); Anion Gap 4 mmol/L (6-16); Aspartate Aminotrans (AST/SGOT 18 U/L (12-37); Bilirubin, Total 0.3 mg/dL (0.1-1.0); Blood Urea Nitrogen 16 mg/dL (8-24); CO2, Blood 33 mmol/L (21-32); Calcium, Blood 8.9 mg/dL (8.5-10.1); Chloride, Blood 100 mmol/L (98-108); Creatinine, Blood 0.76 mg/dL (0.40-1.00); Glomerular Filtration Rate >60 (60-); Glucose, Blood 99 mg/dL (70-99); Potassium, Blood 4.7 mmol/L (3.5-5.5); Sodium, Blood 137 mmol/L (136-145); Total Protein, Blood 7.6 g/dL (6.4-8.2)
== END 2018-11-08 00:20 | disposition short-term general hospital (02) ==
LOC: ER 16:56
PROVIDERS: Emergency Medicine
DX: R07.9 Chest pain, unspecified (principal); R10.13 Epigastric pain; I10 Essential (primary) hypertension; J45.909 Unspecified asthma, uncomplicated; M19.90 Unspecified osteoarthritis, unspecified site; Z88.1 Allergy status to other antibiotic agents; Z88.8 Allergy status to other drugs, medicaments and biological substances; Z91.048 Other nonmedicinal substance allergy status; Z79.899 Other long term (current) drug therapy; Z87.891 Personal history of nicotine dependence
CPT/HCPCS: 71275; 74175; 80053; 83690; 84484; 85025; 93005; 93010; 94640; 96365-59; 96375-59; 96376-59; 99285-25; J2405; J3010; J7060; Q9967

== ENCOUNTER 2018-11-19 09:11 | Emergency (ER) | payer MEDICARE ==
[~2018-11-19] VITALS: Ht 157.5 cm; Wt 72.6 kg
[~2018-11-19 09:11] MED LIST changes: +ROPI1 PO
[2018-11-19] MEDS ORDERED: METO25ER PO (09:25)
[2018-11-19] MEDS ORDERED: FURO20 PO (09:26)
[2018-11-19] MEDS ORDERED: OXYC5 PO (09:26)
[2018-11-19] MEDS ORDERED: ONDA4 PO (09:27)
[2018-11-19 10:24] LABS: BASOPHILS ABSOLUTE AUTO 0.03 K/mm3 (0.00-0.23); BASOPHILS PERCENT AUTO 0 % (0-2); EOSINOPHILS ABSOLUTE AUTO 0.19 K/mm3 (0.00-0.68); EOSINOPHILS PERCENT AUTO 2 % (0-6); Hematocrit 36.5 % (33.0-51.0); Hemoglobin 10.6 g/dL (11.5-16.0); IMMATURE GRAN ABSOLUTE AUTO 0.07 K/mm3 (0.00-0.10); IMMATURE GRAN PERCENT AUTO 1 % (0-1); LYMPHOCYTES ABSOLUTE AUTO 1.61 K/mm3 (0.84-5.20); LYMPHOCYTES PERCENT AUTO 12 % (21-46); MONOCYTES ABSOLUTE AUTO 1.26 K/mm3 (0.16-1.47); MONOCYTES PERCENT AUTO 10 % (4-13); Mean Corpuscular Volume 103 fL (80-100); Mean Platelet Volume 8.9 fL (9.1-12.4); NEUTROPHILS ABSOLUTE AUTO 9.86 K/mm3 (1.96-9.15); NEUTROPHILS PERCENT AUTO 76 % (41-73); Platelet Count 378 K/mm3 (150-400); RDW Coefficient Variation 13.3 % (11.7-14.2); RDW Standard Deviation 50.1 fL (35.1-46.3); Red Blood Cell Count 3.53 M/mm3 (3.80-5.20); White Blood Cell Count 13.02 K/mm3 (4.00-11.30)
[2018-11-19 10:36] LABS: Alanine Aminotransfer (ALT/SGP 16 U/L (12-78); Albumin, Blood 3.1 g/dL (3.4-5.0); Albumin/Globulin Ratio 0.8 (0.8-1.8); Alk Phos 68 U/L (50-136); Anion Gap 1 mmol/L (6-16); Aspartate Aminotrans (AST/SGOT 23 U/L (12-37); Bilirubin, Total 0.5 mg/dL (0.1-1.0); Blood Urea Nitrogen 10 mg/dL (8-24); Bun/Creatinine Ratio 16.7 (12.0-20.0); CO2, Blood 39 mmol/L (21-32); Calcium, Blood 8.3 mg/dL (8.5-10.1); Chloride, Blood 96 mmol/L (98-108); Globulin, Blood 3.7 g/dL (2.2-4.0); Glomerular Filtration Rate >60 (60-); Glucose, Blood 102 mg/dL (70-99); Potassium, Blood 4.5 mmol/L (3.5-5.5); Sodium, Blood 136 mmol/L (136-145); Total Protein, Blood 6.8 g/dL (6.4-8.2)
[2018-11-19 10:38] LABS: Troponin I <0.015 ng/mL (0.000-0.040)
[2018-11-19 11:26] LABS: Influenza A Negative (NEGATIVE); Influenza B Negative (NEGATIVE)
[2018-11-19 12:21] LABS: Base Excess Venous 15.8 mmol/L; Bicarbonate Venous 36.7 mmol/L (24.0-30.0); PCO2 Venous 76.6 mmHg (38-42); PO2 Venous 63.4 mmHg (38-42); pH Blood Venous 7.34 (7.34-7.37)
[2018-11-19] MEDS ORDERED: [UNRECOGNIZED DRUG - OTHER] (12:44)
[2018-11-19] MEDS ORDERED: BENZ100A PO (16:19)
[2018-11-19] MEDS ORDERED: PRAZ1 PO (16:19)
--- NOTE | 2018-11-19 16:51 | NUR ---
Initial Visit: Palliative consult received from ER. Reviewed with Dr. Escobedo and RN. Pt has end stage COPD, has been to the ER five times in the last three months, in addition to an admission inpatient during that time. Pt has history of COPD, CHF, arthritis, asthma, AAA, HTN, home O2. Pt is sitting up in bed. She is very dyspneic, coughs occassionally. She is alert, oriented. Her daughter left the room for a few minutes. Pt is talking about her family throughout this. She is concerned about the family's feelings if hospice is started. Pt reports that her daughter is OCD and does not deal with stress easily. Hospice care was discussed. Reviewed nurse visits, bath aid assistance, medications. She is asking about physical therapy during hospice: instructed that some hospice agencies do allow PT during hospice, but it would be the decision of the agency. Discussed revocation if she were to return to the hospital. She verbalizes understanding. Daughter is coming back to the room. She stops me and is asking me questions. At some point during our discussion, she becomes very upset because I have told her that her mom qualifies for hospice. She is angry because she believes the doctor to have said something quite different. Time spent in gentle conversation with the family while we are waiting for the doctor to return to the room. Pt's granddaughter is present, and a pleasant conversation centered around her accomplishments is the burkett to calming and working with this family again. Daughter eventually begins asking questions about hospice again, and more infomation is shared; already shared information is rediscussed, as daughter is interested in continuing physical therapy also. Pt required the bedpan a total of 4 times during my visits. She desaturates to low to mid 70s repositioning in bed and takes several moments to recover. Daughter of the patient is also asking about Palliative Care and asking about insurance information. It took several times of explaining to her that palliative care is not offered as outpatient in this area. I do expect this patient to return to the hospital, even if she is on hospice. Daughter has high anxiety and difficulty coping. Hospice will need to be engaged and proactive in education and in symptom managment. Pt is calming the daughter down and actually apologizes to me for her daughter's behavior when she was upset. She states, "she just gets worried about me, she is really a good person," as pt is stroking the back of her daughter's hand. Palliative care to remain available if needed for this patient and family. This automotive service writer made three visits to this room today.
[2018-11-19] MEDS ORDERED: Prednisone20 MG PO (16:58)
[2018-11-19] MEDS ORDERED: Proventil5 MG/1 ML INH (16:58)
== END 2018-11-19 17:26 | disposition home or self-care (01) ==
LOC: ER 09:11
PROVIDERS: Emergency Medicine
DX: J44.1 Chronic obstructive pulmonary disease with (acute) exacerbation (principal); I10 Essential (primary) hypertension; E78.5 Hyperlipidemia, unspecified; Z99.81 Dependence on supplemental oxygen; Z88.8 Allergy status to other drugs, medicaments and biological substances; Z88.1 Allergy status to other antibiotic agents; Z79.899 Other long term (current) drug therapy
CPT/HCPCS: 71046; 80053; 82803; 83880; 84484; 85025; 87804; 93005; 93010; 94640; 99284-25

== ENCOUNTER 2018-11-23 12:46 | Inpatient (IN) | payer MEDICARE ==
[~2018-11-23] VITALS: Ht 157.5 cm; Wt 74.0 kg
[~2018-11-23 12:46] MED LIST changes: +FURO20 PO; +METO25ER PO; +ONDA4 PO; +OXYC5 PO; +PRAZ1 PO; +Prednisone20 MG PO; +Proventil5 MG/1 ML INH; +ROPI.25; -ROPI1 PO; +SENN187 PO
[2018-11-23 13:41] LABS: BASOPHILS ABSOLUTE AUTO 0.04 K/mm3 (0.00-0.23); BASOPHILS PERCENT AUTO 0 % (0-2); EOSINOPHILS ABSOLUTE AUTO 0.07 K/mm3 (0.00-0.68); EOSINOPHILS PERCENT AUTO 1 % (0-6); Hematocrit 39.8 % (33.0-51.0); Hemoglobin 11.7 g/dL (11.5-16.0); IMMATURE GRAN ABSOLUTE AUTO 0.07 K/mm3 (0.00-0.10); IMMATURE GRAN PERCENT AUTO 1 % (0-1); LYMPHOCYTES ABSOLUTE AUTO 1.65 K/mm3 (0.84-5.20); LYMPHOCYTES PERCENT AUTO 11 % (21-46); MONOCYTES ABSOLUTE AUTO 1.74 K/mm3 (0.16-1.47); MONOCYTES PERCENT AUTO 11 % (4-13); Mean Corpuscular HGB 30.7 pg (26.0-34.0); Mean Corpuscular HGB Conc 29.4 g/dL (31.5-36.5); Mean Corpuscular Volume 105 fL (80-100); Mean Platelet Volume 9.1 fL (9.1-12.4); NEUTROPHILS ABSOLUTE AUTO 11.67 K/mm3 (1.96-9.15); NEUTROPHILS PERCENT AUTO 77 % (41-73); Platelet Count 447 K/mm3 (150-400); RDW Coefficient Variation 13.2 % (11.7-14.2); RDW Standard Deviation 50.9 fL (35.1-46.3); Red Blood Cell Count 3.81 M/mm3 (3.80-5.20); White Blood Cell Count 15.24 K/mm3 (4.00-11.30)
[2018-11-23 13:55] LABS: Alanine Aminotransfer (ALT/SGP 18 U/L (12-78); Albumin, Blood 3.4 g/dL (3.4-5.0); Albumin/Globulin Ratio 0.9 (0.8-1.8); Alk Phos 71 U/L (50-136); Anion Gap 3 mmol/L (6-16); Aspartate Aminotrans (AST/SGOT 17 U/L (12-37); Bilirubin, Total 0.4 mg/dL (0.1-1.0); Blood Urea Nitrogen 10 mg/dL (8-24); Bun/Creatinine Ratio 16.9 (12.0-20.0); CO2, Blood 39 mmol/L (21-32); Calcium, Blood 8.6 mg/dL (8.5-10.1); Chloride, Blood 96 mmol/L (98-108); Creatinine, Blood 0.59 mg/dL (0.40-1.00); Globulin, Blood 3.8 g/dL (2.2-4.0); Glomerular Filtration Rate >60 (60-); Glucose, Blood 87 mg/dL (70-99); Sodium, Blood 138 mmol/L (136-145); Total Protein, Blood 7.2 g/dL (6.4-8.2); Troponin I <0.015 ng/mL (0.000-0.040)
[2018-11-23 16:53] LABS: Influenza A Negative (NEGATIVE); Influenza B Negative (NEGATIVE)
--- NOTE | 2018-11-23 19:29 | NUR ---
SHIFT SUMMARY: PATIENT ADMIT (OBS) FROM ED THIS SHIFT. PT A&O; CALM AND COOPERATIVE WITH CARE. NO C/O PAIN. TELE IN PLACE; SR c PACs @ 71 PER INSTALLER SOFT TOP. NS @ 200 ML/HR. 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 4L O2 TO MAINTAIN OXYGEN SATURATION; PATIENT USES 3-5L AT HOME. REPORT GIVEN TO ONCOMING RN.
--- NOTE | 2018-11-24 07:38 | NUR ---
Rn summary: Patient is a pleasant, alert and oriented woman here for hypoxia and constipation. Patient states she wants to be a full code at this time until she is able to discuss her situation with her children. Pt is on tele with rhythm of NSR rate 74. Lungs coure with expiratory wheeze posteriorly and insp/exp wheeze anteriorly. Pt has been on cpap most of the night at 5 liters. Pt desats with any activity and is slower to recover. Pt is able to get up to the BSC. She is aweak and a little tremulous. Pt was given the mineral oil fleets enema. Pt was unable to hold any of it. no results obtained. New saline lock applied to Rt forearm. Medicated with fentanyl 25mcg IV for mid abdominal and back pain. Pt with call light in reach and she uses it appropriately.
[2018-11-24 09:19] LABS: BASOPHILS ABSOLUTE AUTO 0.01 K/mm3 (0.00-0.23); BASOPHILS PERCENT AUTO 0 % (0-2); EOSINOPHILS PERCENT AUTO 0 % (0-6); Hematocrit 36.6 % (33.0-51.0); IMMATURE GRAN ABSOLUTE AUTO 0.05 K/mm3 (0.00-0.10); IMMATURE GRAN PERCENT AUTO 0 % (0-1); LYMPHOCYTES ABSOLUTE AUTO 1.23 K/mm3 (0.84-5.20); LYMPHOCYTES PERCENT AUTO 10 % (21-46); MONOCYTES PERCENT AUTO 11 % (4-13); Mean Corpuscular HGB 30.3 pg (26.0-34.0); Mean Corpuscular HGB Conc 30.1 g/dL (31.5-36.5); Mean Platelet Volume 9.1 fL (9.1-12.4); NEUTROPHILS ABSOLUTE AUTO 9.77 K/mm3 (1.96-9.15); NEUTROPHILS PERCENT AUTO 78 % (41-73); Platelet Count 373 K/mm3 (150-400); RDW Coefficient Variation 13.1 % (11.7-14.2); RDW Standard Deviation 48.7 fL (35.1-46.3); Red Blood Cell Count 3.63 M/mm3 (3.80-5.20); White Blood Cell Count 12.46 K/mm3 (4.00-11.30)
[2018-11-24 09:45] LABS: Alanine Aminotransfer (ALT/SGP 19 U/L (12-78); Albumin/Globulin Ratio 0.8 (0.8-1.8); Alk Phos 67 U/L (50-136); Anion Gap 1 mmol/L (6-16); Aspartate Aminotrans (AST/SGOT 15 U/L (12-37); Bilirubin, Total 0.2 mg/dL (0.1-1.0); Blood Urea Nitrogen 10 mg/dL (8-24); Bun/Creatinine Ratio 17.7 (12.0-20.0); CO2, Blood 39 mmol/L (21-32); Calcium, Blood 8.4 mg/dL (8.5-10.1); Chloride, Blood 98 mmol/L (98-108); Creatinine, Blood 0.57 mg/dL (0.40-1.00); Globulin, Blood 3.7 g/dL (2.2-4.0); Glomerular Filtration Rate >60 (60-); Glucose, Blood 99 mg/dL (70-99); Magnesium, Blood 2.5 mg/dL (1.6-2.4); Phosphorus, Blood 3.3 mg/dL (2.5-4.9); Sodium, Blood 138 mmol/L (136-145); Total Protein, Blood 6.7 g/dL (6.4-8.2)
[2018-11-24 10:04] LABS: Mean Corpuscular Volume 101 fL (80-100)
--- NOTE | 2018-11-24 15:59 | NUR ---
SHIFT SUMMARY THE PATIENT PRESENTED THIS SHIFT WITH VITALS WNL, A&O X4 AND WITH LUNG SOUNDS THAT WERE INSPIRATIOR AND EXPIRATORY WHEEZES THOUGHOUT. THE PATIENT WAS ON TELE WITH RSN AT 73, AND HER DOCTOR DC'ED HER TELE. THE PATIENT GETS SOB BREATH WITH EXCERTION, BUT MOVES WELL WITH A STAND-BY ASSIST. THE PATIENT'S FAMILY WAS IN TOODAY TO SEE THE PATIENT. THE PATIENT IS RESTING AT THIS TIME, WILL CONTINUE TO MONITOR.
--- NOTE | 2018-11-24 22:06 | NUR ---
PT IS DOING BETTER THIS EVENING, LUNGS STILL WITH EXP WHEEZING R>L. O2 VIA OXIMIZER AT 4 LITERS. PT IS RECOVERING FROM ACTIVITY AND LOWS SATS FASTER. PT STILL HAS NOT HAD A BM. MEDICATED WITH COLACE AND PRUNE JUICE, REFUSED MOM AT THIS TIME. pLAN ON SUPOSITORY LATER THIS SHIFT. PT IS HAVING BACK PAIN WITH ABDOMINAL PAIN AND HEADACHE 7/10, FENTANYL 50 MCG GIVEN AND PT RESTING QUIETLY. PT CARE TRANSFERRED TO [facility], REPORT GIVEN.
--- NOTE | 2018-11-25 00:17 | NUR ---
ASSUMED CARE OF PT TOOK OVER CARE OF PT AROUND 2200 FROM OTF LÓPEZ RN. I AGREE W/SHIFT ASSESSMENT FINDINGS & WILL CONT. TO MONITOR PT FOR THE REST OF SHIFT.
--- NOTE | 2018-11-25 06:19 | NUR ---
SHIFT SUMMARY I ASSUMED CARE OF PT AROUND 2200 LAST NIGHT, SHE HAS BEEN SLEEPING SOUNDLY T/O NIGHT. AOX4, ANSWERS QUESTIONS APPROPRIATELY & FOLLOWS DIRECTIONS. VSS. CONTINUOUS PULSE OX >90% ON 4L VIA OXIMIZER, E/U BREATHING, LUNGS HAVE INSPIRATORY/EXPIRATORY WHEEZES T/O. DENIES NAUSEA. REPORTS 6-7/10 PAIN IN BACK/LEGS/ALLOVER, MEDICATED 1X W/FENTANYL & 1X W/OXYCODONE PER ORDERS. PT REPORTED TO PREVIOUS NURSE THAT SHE HADN'T HAD A BM IN ROUGHLY 3 WEEKS, PT REFUSED MOM FOR PREVIOUS NURSE, THEREFORE WAS GIVEN PRUNE JUICE W/BUTTER LAST NIGHT & A SUPPOSITORY THIS AM PER ORDERS, NO BM YET. CALL LIGHT IN REACH & WILL CONTINUE TO MONITOR.
--- NOTE | 2018-11-25 17:21 | NUR ---
PATIENT DISCHARGE THE PATIENT WAS DISCHARGED HOME WITH HER SON-N-LAW AFTER DISCHARGE INSTRUCTIOS WERE GIVEN TO THE PATIENT. THE PATIENT WAS INSTRUCTED TO FOLLOW UP WITH HER PCP WITHIN 10 DAYS AND TO MEDICAL SPECIALIST HER PRESCRIPTIONS ORDERED BY HER DOCTOR. THE PATIENT LEFT THE HOSPITAL WITHOUT CONCERN OR COMPLAINT.
== END 2018-11-25 17:45 | disposition home or self-care (01) | DRG 191 ==
LOC: ER 12:46 → MEDS 12:47
PROVIDERS: Emergency Medicine; Physician Assistant; ADMIT Family Medicine
DX: J44.1 Chronic obstructive pulmonary disease with (acute) exacerbation (principal); J96.12 Chronic respiratory failure with hypercapnia; I71.4 Abdominal aortic aneurysm, without rupture; Z87.891 Personal history of nicotine dependence; Z99.81 Dependence on supplemental oxygen; I10 Essential (primary) hypertension; E78.5 Hyperlipidemia, unspecified; Z66 Do not resuscitate; K59.03 Drug induced constipation; T40.2X5A Adverse effect of other opioids, initial encounter
CPT/HCPCS: 36415; 71046; 74019; 80053; 83735; 83880; 84100; 84484; 85025; 87804; 93005; 93010; 94640; 94644; 94660; 94762; 96361; 96365; 96366; 96375; 96376; 97110; 97162; 97530; 99285-25; C9113; G0378; J0696; J2405; J2930; J3010; J7030; J7042

== ENCOUNTER 2018-11-28 14:52 | Inpatient (IN) | payer MEDICARE ==
[~2018-11-28] VITALS: Ht 157.5 cm; Wt 76.1 kg
[~2018-11-28 14:52] MED LIST changes: -ROPI.25; +ROPI.25 PO
[2018-11-28 15:06] LABS: Base Excess Venous 11.1 mmol/L; Bicarbonate Venous 32.3 mmol/L (24.0-30.0); PCO2 Venous 64.5 mmHg (38-42); PO2 Venous 57.4 mmHg (38-42); pH Blood Venous 7.36 (7.34-7.37)
[2018-11-28 15:21] LABS: BASOPHILS ABSOLUTE AUTO 0.01 K/mm3 (0.00-0.23); BASOPHILS PERCENT AUTO 0 % (0-2); EOSINOPHILS ABSOLUTE AUTO 0.03 K/mm3 (0.00-0.68); EOSINOPHILS PERCENT AUTO 0 % (0-6); Hematocrit 41.9 % (33.0-51.0); Hemoglobin 12.4 g/dL (11.5-16.0); IMMATURE GRAN ABSOLUTE AUTO 0.09 K/mm3 (0.00-0.10); IMMATURE GRAN PERCENT AUTO 1 % (0-1); LYMPHOCYTES ABSOLUTE AUTO 0.81 K/mm3 (0.84-5.20); LYMPHOCYTES PERCENT AUTO 6 % (21-46); MONOCYTES ABSOLUTE AUTO 0.41 K/mm3 (0.16-1.47); MONOCYTES PERCENT AUTO 3 % (4-13); Mean Corpuscular HGB 30.3 pg (26.0-34.0); Mean Corpuscular HGB Conc 29.6 g/dL (31.5-36.5); Mean Corpuscular Volume 102 fL (80-100); NEUTROPHILS ABSOLUTE AUTO 13.01 K/mm3 (1.96-9.15); NEUTROPHILS PERCENT AUTO 91 % (41-73); Platelet Count 412 K/mm3 (150-400); RDW Coefficient Variation 13.3 % (11.7-14.2); RDW Standard Deviation 50.4 fL (35.1-46.3); Red Blood Cell Count 4.09 M/mm3 (3.80-5.20); White Blood Cell Count 14.36 K/mm3 (4.00-11.30)
[2018-11-28 15:40] LABS: Alanine Aminotransfer (ALT/SGP 26 U/L (12-78); Albumin, Blood 3.3 g/dL (3.4-5.0); Albumin/Globulin Ratio 0.9 (0.8-1.8); Alk Phos 75 U/L (50-136); Anion Gap 3 mmol/L (6-16); Aspartate Aminotrans (AST/SGOT 16 U/L (12-37); Bilirubin, Total 0.3 mg/dL (0.1-1.0); Blood Urea Nitrogen 8 mg/dL (8-24); Bun/Creatinine Ratio 12.5 (12.0-20.0); CO2, Blood 36 mmol/L (21-32); Calcium, Blood 8.5 mg/dL (8.5-10.1); Chloride, Blood 101 mmol/L (98-108); Creatinine, Blood 0.64 mg/dL (0.40-1.00); Globulin, Blood 3.8 g/dL (2.2-4.0); Glomerular Filtration Rate >60 (60-); Glucose, Blood 163 mg/dL (70-99); Potassium, Blood 3.9 mmol/L (3.5-5.5); Sodium, Blood 140 mmol/L (136-145); Total Protein, Blood 7.1 g/dL (6.4-8.2); Troponin I <0.015 ng/mL (0.000-0.040)
[2018-11-28] MEDS ORDERED: Zanaflex2 M1 PO (18:52)
--- NOTE | 2018-11-28 19:45 | NUR ---
ASSUMED CARE REPORT TAKEN FROM ED RN. PT TRANSPORTED TO UNIT ON STRETCHER, AND MOVED FROM [facility] TO [facility] BED. PT ON BIPAP AT TIME OF ARRIVAL. TOLERATING WELL. PT HAS PLEASENT AFFECT. RESP EVEN UNLABORED ON BIPAP W/ SATS >92%. PT REPORTS FEELING BETTER. DENIES CP, BUT REPORTS MILD ABD PAIN D/T ULCER. FAMILY TO ROOM AT THIS TIME. DAUGHTER IS UPSET PT IN IS DROPLET ISOLATION. DAUGHTER REPORTS PT HAS NEVER BEEN DIAGNOSED W/ MRSA AND THE ISOLATION UPSETS PT. AT THIS TIME PT APPEARS CALM AND PLEASENT. DAUGHTER EDUCATED THAT ISOLATION IS TO PROTECT OTHER PATIENTS FROM POSSIBLE EXPOSURE, AND ADVISED THIS RN WILL LOOK INTO CHART AND SEE WHEN DIAGNOSIS WAS PUT ON CHART. PT DENIES OTHER NEEDS AT THIS TIME. PT IS SBA TO BSC. CALL LIGHT IS IN REACH.
[2018-11-29 05:41] LABS: BASOPHILS ABSOLUTE AUTO 0.01 K/mm3 (0.00-0.23); BASOPHILS PERCENT AUTO 0 % (0-2); EOSINOPHILS PERCENT AUTO 0 % (0-6); Hematocrit 41.4 % (33.0-51.0); Hemoglobin 12.2 g/dL (11.5-16.0); IMMATURE GRAN ABSOLUTE AUTO 0.09 K/mm3 (0.00-0.10); IMMATURE GRAN PERCENT AUTO 1 % (0-1); LYMPHOCYTES ABSOLUTE AUTO 0.51 K/mm3 (0.84-5.20); LYMPHOCYTES PERCENT AUTO 5 % (21-46); MONOCYTES ABSOLUTE AUTO 0.07 K/mm3 (0.16-1.47); MONOCYTES PERCENT AUTO 1 % (4-13); Mean Corpuscular HGB Conc 29.5 g/dL (31.5-36.5); Mean Corpuscular Volume 102 fL (80-100); Mean Platelet Volume 8.9 fL (9.1-12.4); NEUTROPHILS ABSOLUTE AUTO 9.21 K/mm3 (1.96-9.15); NEUTROPHILS PERCENT AUTO 93 % (41-73); Platelet Count 367 K/mm3 (150-400); RDW Coefficient Variation 13.1 % (11.7-14.2); RDW Standard Deviation 49.2 fL (35.1-46.3); Red Blood Cell Count 4.07 M/mm3 (3.80-5.20); White Blood Cell Count 9.89 K/mm3 (4.00-11.30)
--- NOTE | 2018-11-29 05:41 | NUR ---
SHIFT SUMMARY PT SLEEPING IN ROOM COMFORTABLY. NO ACUTE CHANGES IN STATUS T/O NIGHT. RESP EVEN UNLABORED ON HI FLOW NC AT REST W/ SATS >92%. PT REMAINS DYSPNIC W/ EXERTION. DENIES CP. PT WAS MEDICATED T.O NIGHT FOR ABD/BACK PAIN. [facility]
[2018-11-29 06:10] LABS: Anion Gap 6 mmol/L (6-16); Blood Urea Nitrogen 11 mg/dL (8-24); CO2, Blood 36 mmol/L (21-32); Calcium, Blood 8.4 mg/dL (8.5-10.1); Chloride, Blood 98 mmol/L (98-108); Creatinine, Blood 0.65 mg/dL (0.40-1.00); Glomerular Filtration Rate >60 (60-); Glucose, Blood 149 mg/dL (70-99); Magnesium, Blood 2.6 mg/dL (1.6-2.4); Potassium, Blood 3.7 mmol/L (3.5-5.5); Sodium, Blood 140 mmol/L (136-145)
[2018-11-29 09:36] LABS: PCO2 Arterial 65.2 mmHg (35-45); PO2 Arterial 84.1 mmHg (80-100); pH Blood Arterial 7.34 (7.35-7.45)
--- NOTE | 2018-11-29 10:04 | NUR ---
Initial palliative care consult: Alyssia is a 73 year old with a history of end stage COPD, HTN, asthma, CAD, hyperlididemia. She has had 5 ER visits and 3 hospital admissions since 2018. She lives with her and daughter, Álvaro, who is her caregiver. Alyssia states that Dr. Shin is her PCP and that Dr. Shin had started the hospice ordering process [facility] per Alyssia's request. [facility] and she now feels like the time is right to transition to hospice. Alyssia describes great family support. She has 4 adult children, two in [place], one in the [facility] and Álvaro who lives with her. She is looking forward to family visiting this weekend and wants to be home for their arrival into town on Monday so she can make a meal for her grandson. Alyssia confirms her DNR status and reports that Dr. Shin has a copy of her AD. She is requesting that she have the ability to take her breathing treatments at [facility] with oxygen. She reports her current home oxygen euipment prevents her from having O2 during a neb treatment. She reports that she would like to have a hospital bed. She has been considering a bed for awhile but didn't want to give up sleeping near her . She states now that a hospital bed will make things easier for her caregiver and for her. Encouraged her that her can climb into the hospital bed next to her and still be close. She said she had thought of that and she might like that option. Currently she is on 6 liters of humidified O2 via nc. Blood gases were drawn during our conversation. She reports a heavy chest after talking for about 15 minutes. This heaviness subsides when she lays quietly and takes a break from talking. She is able to speak in short sentences but has more shallow breathing when she does. Her oximitry was maintained in the low 90s during our conversation. She states that her breathing has improved from when she was admitted. No other complaints except that her wrist is sore from the ABG. She is looking forward to going home with hospice support tomorrow. Explained some of the medications that can be used to help manage her symptoms at home. Spoke with Qing Villa re: [facility] upon discharge, pt's request for additional oxygen equipment and hospital bed, and Dr. Shin's note re: likely home BIPAP. Qing states that she spoke with staff at [facility] who will be organizing euipment needs for pt's return home tomorrow. Qing also stated that [facility] will be contacting [facility] to make sure all arrangements for equipment and tranportation home are met. Alyssia and nurse, Jessica, updated on current discharge planning.
--- NOTE | 2018-11-29 13:12 | NUR ---
The pt is taking narcotic pain relievers. She states that she has a dissecting aortic aneurysm which is being medically managed. Her blood pressure is much improved since this morning, and she states that her pain is being adequately controlled with the pain medication. However, she usually takes colace at home and she has no bowel care ordered while here in the hospital. Call to Dr. Beach to request bowel care orders; the doctor said that she will put some orders in.
--- NOTE | 2018-11-29 15:35 | NUR ---
Very cheerful patient, pleasantly conversant and repeatedly expressing her gratitude for care and staff. She has been using the bipap this afternoon; states that she was feeling short of breath and anxious, and that the bipap has helped. Getting up to the bedside commode with minimal assistance. Dsypnea noted with exertion, as well as hypoxia to 80-83 % with the activity, but she does not show anxiety or distress with it, and calmly uses her breathing for recovery. Conversant throughout the time of activity of getting OOB to BSC with staff assist.
--- NOTE | 2018-11-30 06:46 | NUR ---
SHIFT SUMMARY- PT HAS REMAINED AOX4 THROUGHOUT SHIFT. VERY PLEASANT AND COOPERATIVE WITH CARE. PT WITH ONE EPISODE OF ANXIETY AT START OF SHIFT THAT WAS RELIEVED WITH ORDERED MEDICATIONS. PT STATES THAT SHE FEELS ANXIOUS WHEN SHE HAS TO GO TO THE BATHROOM AND HER OXYGEN SATURATIONS ARE LOW. PT GIVEN ROXANOL ONE TIME PRIOR TO AMBULATION AND REPORTED THAT IT HELPED SIGNIFICANTLY WITH AIR HUNGER AND ANXIETY RELATED TO OXYGEN DESATURATION. O2 SATS REMAINED >90% ON 5L VIA NASAL CANNULA OR HOME BIPAP WITH 5L O2 BLEED-IN. PT NOTED TO HAVE EXERTIONAL DYSPNEA AND SATURATIONS THAT DECREASE TO LOW TO MID 80'S WITH ACTIVITY. CONTINUES TO AMBULATE WITH STANDBY ASSIST TO BEDSIDE COMMODE WITHOUT DIFFICULTY. NO OTHER CHANGES NOTED FROM INITIAL ASSESSMENT. WILL CONTINUE TO MONITOR AND REPORT TO ONCOMING SHIFT RN. BED IN LOW POSITION, CALL LIGHT IN REACH.
[2018-11-30] MEDS ORDERED: DELTASONE20 MG PO (10:45)
[2018-11-30] MEDS ORDERED: Bactrim Ds Tab1 EACH PO (10:49)
[2018-11-30] MEDS ORDERED: DOCU100 PO (10:57)
--- NOTE | 2018-11-30 11:39 | NUR ---
Met pt. lying in bed resting pt. is doing well nencouraged pt. in her situation offered spiritual support and prayers.
--- NOTE | 2018-11-30 13:16 | NUR ---
DISCHARGE SUMMARY PT A&OX4 FORGETFUL AT TIMES. PT REPORTS ANXIETY THIS AM, MEDICATED WITH ATIVAN X1. PT REPORTS PAIN IN LUNGS/EPIGASTRIC AND HEADACHE DURING SHIFT, MEDICATED X2 WITH ROXANOL. PT SOB AT REST, ON 5L O2 VIA NC AT 90%, WEARING BIPAP WHILE SLEEPING. PT DENIES NAUSEA/VOMIT DURING SHIFT. PT RECEIVNG IV ANTIBIOTICS. HYPERTENSIVE THIS AM, MEDICATED WITH SCHEDULES MEDICATION THIS AM WITH POSITIVE RESULTS. OTHER VSS. NO OTHER ACUTE CHANGES NOTED DURING SHIFT. PT EDUCATED ON DISCHARGE INSTRUCTIONS, MEDICATIONS AND FOLLOW UP APPOINTMENTS. PRESCRIPTIONS SENT TO [facility] [address] PER PT REQUEST. PT LEFT ROOM VIA [employer] [facility]SPORT AT 1244. PT STABLE UPON DISCAHRGE. PT GOING HOME ON HOSPICE. SENT HOME BIPAP. NOTIFIED DAUGHTER OF DISCHARGE.
== END 2018-11-30 12:47 | disposition home or self-care (01) | DRG 871 ==
LOC: ER 14:52 → PCU 17:58
PROVIDERS: Emergency Medicine; ADMIT Hospitalist
PROC: 5A09357 Assistance with Respiratory Ventilation, Less than 24 Consecutive Hours, Continuous Positive Airway Pressure (ICD-10-PCS; principal; 2018-11-28)
DX: A41.9 Sepsis, unspecified organism (principal); J18.9 Pneumonia, unspecified organism; J96.21 Acute and chronic respiratory failure with hypoxia; J96.22 Acute and chronic respiratory failure with hypercapnia; J44.1 Chronic obstructive pulmonary disease with (acute) exacerbation; J44.0 Chronic obstructive pulmonary disease with (acute) lower respiratory infection; E87.2 Acidosis; E87.5 Hyperkalemia; F41.1 Generalized anxiety disorder; Z99.81 Dependence on supplemental oxygen; Z87.891 Personal history of nicotine dependence; Y95 Nosocomial condition; I10 Essential (primary) hypertension
CPT/HCPCS: 36415; 36600; 71045; 80048; 80053; 82803; 83605; 83735; 83880; 84484; 85025; 93005; 93010; 94640; 94660; 94762; 96365; 96366; 96368; 96375; 96376; 99285-25; J0696; J1956; J2060; J2543; J2930; J3370; J7050; J7120